=== PATIENT | female | born 1990 | race Caucasian/White ===

== ENCOUNTER 2018-10-23 13:33 | Emergency (ER) | payer MEDICAID ==
[~2018-10-23] VITALS: Ht 160 cm; Wt 78.6 kg
[2018-10-23 13:58] VITALS: BP 124/58; PULSE 68; RESP 18; Ht 160 cm; Wt 78.6 kg
[2018-10-23] MEDS ORDERED: ONDANSETRON (ODT) 4 MG TAB ODT STA (14:51)
[2018-10-23] MEDS ORDERED: ONDA4TAB14 PO (15:42)
[2018-10-23] MEDS ORDERED: PYRI25TA4 PO (15:42)
--- NOTE | 2018-10-23 15:51 | ERD ---
ER Documentation Chief Complaint Chief Complaint vomitting 10 wks , @ clinic HPI History of Present Illness: 27-year-old female with no past medical history coming in today with complaint of vomiting is been present for 1 week, 1-2x day. Patient reports that she did have some related vomiting earlier during . Patient denies any obvious symptoms. Denies vaginal bleeding, abdominal pain, dysuria. At home pharmacological/nonpharmacological treatment for symptoms: denies Denies social concerns; Denies recent foreign travel ROS All systems reviewed and are negative except as per history of present illness. Medications Home Meds Active Scripts Pyridoxine Hcl* (Pyridoxine Hcl*) 25 Mg Tablet, 25 MG PO Q8 for nausea prevention for 30 Days, TAB 1 Refill Prov:MEENA RUELAS NP 10/23/18 Ondansetron (Ondansetron Odt) 4 Mg Tab.rapdis, 4 MG PO Q12 PRN for NAUSEA AND/OR VOMITING, #14 TAB Prov:MEENA RUELAS NP 10/23/18 Allergies Allergies: Coded Allergies: No Known Allergy (Unverified , 11/14/14) PMhx/Soc History of Surgery: No Anesthesia Reaction: No Hx Neurological Disorder: No Hx Respiratory Disorders: No Hx Cardiac Disorders: Yes (HTN) Hx Psychiatric Problems: Yes (ANXIETY) Hx Miscellaneous Medical Probl: No Hx Alcohol Use: No Hx Substance Use: No Hx Tobacco Use: No Smoking Status: Never smoker FmHx Family History: No diabetes, No coronary disease Physical Exam Vitals Vital Signs Date Temp Pulse Resp B/P (MAP) Pulse Ox O2 O2 Flow FiO2 Time Delivery Rate 10/23/18 98.6 68 18 124/58 100 13:58 (80) Physical Exam . Const: No acute distress Head: Atraumatic Eyes: Normal Conjunctiva ENT: Normal External Ears, Nose and Mouth. Neck: Full range of motion. No meningismus. Resp: Clear to auscultation bilaterally Cardio: Regular rate and rhythm, no murmurs Abd: Soft, non tender, non distended. Normal bowel sounds. Palpable fundus Skin: No petechiae or rashes Back: No midline or flank tenderness Ext: No cyanosis, or edema Neur: Awake and alert Psych: Normal Mood and Affect Results 24 hrs Current Medications Medications Dose Sig/Funmi Start Time Status Last (Trade) Ordered Route PRN Stop Time Admin Dose Reason Admin Ondansetron 4 mg ONCE STAT 10/23/18 DC 10/23/18 HCl (Zofran ODT 14:51 15:01 Odt) 10/23/18 14:53 Procedures/MDM ED course includes a thorough examination and history. Medications: Zofran Imaging: - Labs: - Low suspicion for life-threatening medical emergency. Low suspicion for acute abdominal emergency or Oxecta emergency that requires consultation or immediate surgical intervention or further evaluation and testing. Otherwise healthy patient presenting with constellation of symptoms likely repre senting uncomplicated related vomiting as characterized by history, physical exam findings. No respiratory distress, otherwise relatively well appearing and nontoxic. Patient passed p.o. challenge during ER visit.. Patient educated on diagnoses, prescriptions, follow-up care, return precautions. Strict return precautions given for worsening condition; questions answered discharge. Disposition for discharge with followup in 2 days with PCP/clinic. Departure Diagnosis: Primary Impression: , excessive vomiting Condition: Stable Patient Instructions: Hyperemesis Gravidarum (Severe Morning Sickness) Referrals: [facility] Usted se brambila hecho un examen mdico de control que le indica que no est en komal condicin que requiera tratamiento urgente en el Departamento de Emergencia. Un estudio ms profundo y el tratamiento de braswell condicin pueden esperar sin ningn riesgo hasta que usted sea atendida/o en el consultorio de braswell mdico o komal clnica. Es responsabilidad suya arreglar komal valdez para el seguimiento del ashish. MANEJO DE CONDICIONES NO URGENTES EN EL FUTURO 1) Si usted tiene un mdico de atencin primaria: Usted debera llamar a braswell mdico de atencin primaria antes de venir al departamento de emergencia. Despus de las horas de consultorio, braswell doctor o braswell asociado/a est disponible por telfono. El mdico o enfermero de pantera en el servicio telefnico puede asesorarle por chaka medio para atender el problema, o ashish contrario se puede programar komal valdez. 2) Si usted no tiene un mdico de atencin primaria: Llame al mdico o clnica de referencia que aparece abajo sylvia las horas de consultorio para hacer komal valdez para que le vean. CLINICAS: [facility] [id number] [facility] [phone] [address] [facility] [phone] [place] [id number] [phone] [place] [id number] [phone] [facility] [phone] [address] [facility]. [facility] () Usted se brambila hecho un examen mdico de control que le indica que no est en komal condicin que requiera tratamiento urgente en el Departamento de Emergencia. Un estudio ms profundo y el tratamiento de braswell condicin pueden esperar sin ningn riesgo hasta que usted sea atendida/o en el consultorio de braswell mdico o komal clnica. Es responsabilidad suya arreglar komal valdez para el seguimiento del ashish. MANEJO DE CONDICIONES NO URGENTES EN EL FUTURO 1) Si usted tiene un mdico de atencin primaria: Usted debera llamar a braswell mdico de atencin primaria antes de venir al departamento de emergencia. Despus de las horas de consultorio, braswell doctor o braswell asociado/a est disponible por telfono. El mdico o enfermero de pantera en el servicio telefnico puede asesorarle por chaka medio para atender el problema, o ashish contrario se puede programar komal valdez. 2) Si usted no tiene un mdico de atencin primaria: Llame al mdico o condado institucions de referencia que aparece abajo sylvia las horas de consultorio para hacer komal valdez para que le vean. SI USTED NO PUEDE PAGAR PARA ALICIA UN MEDICO puede ir a: [facility] [address] [place] [address] [facility] [address] [place] [address] [facility] [address] [place] [address] [facility] [address] [place] [address] Additional Instructions: Muchas mildred por permitirnos participar en braswell cuidado. Braswell edie y seguridad es nuestra principal prioridad en [facility]. Es importante leer todas las instrucciones de stacie y la educacin que se proporcionan en braswell paquete de stacie. Llame a braswell mdico de atencin primaria MAANA para komal valdez sylvia los prximos 2 a 4 barrera y lleve toda la informacin y los medicamentos recetados. Llene las recetas y siga exactamente las instrucciones de la etiqueta. -Zofran es un medicamento para las nuseas / vmitos; tome lora medicamento segn sea necesario para las nuseas / vmitos / disminucin del apetito. [place] lora medicamento segn sea necesario para los vmitos si la piridoxina no est funcionando. -La piridoxina es komal vitamina llamada vitamina B6. [place] lora medicamento todos los barrera segn lo prescrito para la prevencin de las nuseas. Informe a braswell mdico de cabecera u obstetra si lora medicamento le brambila ayudado, y le pueden proporcionar ms reabastecimientos de lora medicamento. Si los sntomas empeoran y braswell proveedor no est disponible, regrese inmediatamente al Departamento de emergencias. ---- Thank you very much for allowing us to participate in your care. Your health and safety is our top priority at [facility]. It is important to read all discharge instructions and education provided in your discharge packet. Call your primary care doctor TOMORROW for an appointment during the next 2-4 days and bring all the information and medications prescribed. Have prescriptions filled and follow precisely the directions on the label. -Zofran is a medication for nausea/vomitting; take this medication as needed for nausea/vomiting/decreased appetite. Take this medication as needed for vomiting if pyridoxine is not working. -Pyridoxine is a vitamin called Vitamin B6. Take this medication every day as prescribed for nausea prevention. Inform your primary care doctor or programming specialist if this medication has helped, and they can give you further refills of this medication. If the symptoms get worse and your provider is unavailable, return to the Emergency Department immediately. MEENA RUELAS NP Oct 23, 2018 15:51
== END 2018-10-23 16:02 | disposition home or self-care (01) ==
LOC: FTE 13:33
DX: O21.9 Vomiting of pregnancy, unspecified (principal); O10.011 Pre-existing essential hypertension complicating pregnancy, first trimester; Z3A.10 10 weeks gestation of pregnancy
CPT/HCPCS: 99283

== ENCOUNTER 2018-11-15 22:52 | Emergency (ER) | payer MEDICAID, OTHER ==
[~2018-11-15] VITALS: Ht 162.6 cm; Wt 75.0 kg
[~2018-11-15 22:52] MED LIST: ONDA4TAB14 PO; PYRI25TA4 PO
[2018-11-15 23:01] VITALS: Ht 162.6 cm; Wt 75.0 kg
[2018-11-16] MEDS ORDERED: SOD CHLORIDE 0.9% 1,000 ML IV STA (00:22)
[2018-11-16] MEDS ORDERED: METO5TAB58 PO (02:40)
[2018-11-16] MEDS ORDERED: PREN1TAB13 PO (02:40)
[2018-11-16] MEDS ORDERED: RANI150T5 PO (02:40)
[2018-11-16 03:31] VITALS: BP 119/78; PULSE 83; RESP 23
--- NOTE | 2018-12-19 01:48 | ERD ---
ER Documentation Chief Complaint Chief Complaint 12 WEEKS PREG WITH SYNCOPAL EVENT AT HOME, REPORTS POOR APPETITE HPI Is a very pleasant 20-year-old female who had a syncopal episode at home. Patient is 12 weeks . She denies any fevers or chills. She denies any other current complaints. Denies any chest pain. Denies any palpitations. ROS All systems reviewed and are negative except as per history of present illness. Medications Home Meds Reported Medications Pnv95/Ferrous Fumarate/FA ( Vitamins Tablet) 1 Each Tablet, 1 TAB PO DAILY for 90 Days, #90 TAKE 1 TABLET BY MOUTH EVERY DAY 11/16/18 Ranitidine Hcl* (Ranitidine Hcl*) 150 Mg Tablet, 150 MG PO BID 11/16/18 Metoclopramide* (Reglan*) 5 Mg Tablet, 5 MG PO AC MEALS, TAB 11/16/18 Allergies Allergies: Coded Allergies: No Known Allergy (Unverified , 11/16/18) PMhx/Soc History of Surgery: No Anesthesia Reaction: No Hx Neurological Disorder: No Hx Respiratory Disorders: No Hx Cardiac Disorders: Yes (HTN) Hx Psychiatric Problems: Yes (ANXIETY) Hx Miscellaneous Medical Probl: No Hx Alcohol Use: No Hx Substance Use: No Hx Tobacco Use: No Smoking Status: Never smoker Physical Exam Physical Exam Const: No acute distress Head: Atraumatic Eyes: Normal Conjunctiva ENT: Normal External Ears, Nose and Mouth. Neck: Full range of motion. No meningismus. Resp: Clear to auscultation bilaterally Cardio: Regular rate and rhythm, no murmurs Abd: Soft, non tender, non distended. Normal bowel sounds Skin: No petechiae or rashes Back: No midline or flank tenderness Ext: No cyanosis, or edema Neur: Awake and alert Psych: Normal Mood and Affect Results 24 hrs Laboratory Tests Test 11/16/18 00:35 11/16/18 00:37 POC Beta HCG, Qualitative POSITIVE White Blood Count 10.5 10^3/ul Red Blood Count 3.74 10^6/ul Hemoglobin 11.5 g/dl Hematocrit 34.3 % Mean Corpuscular Volume 91.7 fl Mean Corpuscular Hemoglobin 30.7 pg Mean Corpuscular Hemoglobin Concent 33.5 g/dl Red Cell Distribution Width 13.0 % Platelet Count 282 10^3/UL Mean Platelet Volume 9.6 fl Immature Granulocytes % 0.200 % Neutrophils % 69.1 % Lymphocytes % 23.2 % Monocytes % 6.6 % Eosinophils % 0.7 % Basophils % 0.2 % Nucleated Red Blood Cells % 0.0 /100WBC Immature Granulocytes # 0.020 10^3/ul Neutrophils # 7.2 10^3/ul Lymphocytes # 2.4 10^3/ul Monocytes # 0.7 10^3/ul Eosinophils # 0.1 10^3/ul Basophils # 0.0 10^3/ul Nucleated Red Blood Cells # 0.0 10^3/ul Urine Color YELLOW Urine Clarity CLOUDY Urine pH 7.0 Urine Specific [place] 1.015 Urine Ketones NEGATIVE mg/dL Urine Nitrite NEGATIVE mg/dL Urine Bilirubin NEGATIVE mg/dL Urine Urobilinogen NEGATIVE mg/dL Urine Leukocyte Esterase TRACE Pura/ul Urine Microscopic RBC 5 /HPF Urine Microscopic WBC 22 /HPF Urine Squamous Epithelial Cells MANY /HPF Urine Amorphous Crystals FEW /HPF Urine Bacteria FEW /HPF Urine Mucus FEW /HPF Urine Hemoglobin NEGATIVE mg/dL Urine Glucose NEGATIVE mg/dL Urine Total Protein NEGATIVE mg/dl Sodium Level 138 mmol/L Potassium Level 3.8 mmol/L Chloride Level 108 mmol/L Carbon Dioxide Level 22 mmol/L Anion Gap 8 Blood Urea Nitrogen 8 mg/dl Creatinine 0.51 mg/dl Est Glomerular Filtrat Rate mL/min > 60 mL/min Glucose Level 97 mg/dl Calcium Level 9.2 mg/dl Troponin I < 0.012 ng/ml Current Medications Medications Dose Sig/Funmi Start Time Status Last (Trade) Ordered Route PRN Stop Time Admin Dose Reason Admin Sodium 1,000 ml @ Q1H STAT 11/16/18 DC 11/16/18 Chloride 1,000 mls/hr IV 00:22 00:39 11/16/18 01:21 Procedures/MDM EKG: Rate/Rhythm: [Normal Sinus Rhythm] QRS, ST, T-waves: [No changes consistent w/ acute ischemia] Impression: [No evidence of ischemia or arrhythmia] Decision makin-year-old female comes in with syncopal episode. She is 12 weeks . She is well-appearing. Says she is been stressed out a lot lately. She feels much better after fluid resuscitation. She did advise follow-up with primary care physician return for any return of symptoms. Departure Diagnosis: Primary Impression: Syncope Syncope type: unspecified Qualified Codes: R55 - Syncope and collapse Condition: Stable Patient Instructions: Syncope, Unk Cause KELLI JACOBS Dec 19, 2018 01:48
== END 2018-11-16 03:54 | disposition home or self-care (01) ==
LOC: E/R 22:52
DX: O26.891 Other specified pregnancy related conditions, first trimester (principal); R55 Syncope and collapse; O10.011 Pre-existing essential hypertension complicating pregnancy, first trimester; Z3A.12 12 weeks gestation of pregnancy
CPT/HCPCS: 76801; 80048; 81001; 81025; 84484; 85025; 93005; J7030; 36415